=== PATIENT | female | born 1965 | race Caucasian/White ===

== ENCOUNTER 2018-03-16 11:25 | Day surgery (SDC) | payer BC ==
[2018-03-16] MEDS ORDERED: PROPOFOL 40 ML (13:49)
== END 2018-03-16 14:57 | disposition home or self-care (01) ==
LOC: GIL 11:25
DX: Z12.11 Encounter for screening for malignant neoplasm of colon (principal); E78.5 Hyperlipidemia, unspecified; E78.00 Pure hypercholesterolemia, unspecified
CPT/HCPCS: 45378